=== PATIENT | female | born 1935 | race Caucasian/White ===

== ENCOUNTER 2017-07-23 15:51 | Inpatient (IN) | payer MEDICARE ==
[2017-07-23 16:32] LABS: #Basophils 0.1 thou/uL (0.0-0.2); #Eosinphils 0.1 thou/uL (0.0-0.7); #Monocytes 0.6 thou/uL (0.11-0.59); #Neutrophils 3.5 thou/uL (1.40-6.50); %Basophils 1.1 % (0.0-1.0); %Lymphocytes 40.8 % (21.0-51.0); %Monocytes 8.1 % (0.0-10.0); Hemoglobin 14.8 g/dL (12.0-16.0); Mean Corpuscular HGB CONC 33.2 g/dL (32.0-36.0); Mean Corpuscular Hemoglobin 32.2 pg (27.0-31.0); Mean Corpuscular Volume 97.1 fl (81.0-99.0); Mean Platelet Volume 7.7 fL (7.4-10.4); Platelet Count 240 thou/uL (130-400); RBC Distribution Width 12.4 % (11.5-14.5); Red Blood Cell (RBC) Count 4.59 mill/uL (4.20-5.40); White Blood Cell (WBC) Count 7.2 thou/uL (4.8-10.8)
[2017-07-23 16:39] LABS: PTT 31.1 SEC (22.9-36.1)
[2017-07-23 16:54] LABS: ALT (SGPT) 18 U/L (8-55); AST (SGOT) 31 U/L (5-34); Albumin 4.6 g/dL (3.4-4.8); Alkaline Phosphatase 65 U/L (40-150); Anion Gap 13 mmol/L (10-20); BUN (Urea Nitrogen) 16 mg/dL (9.8-20.1); Bilirubin, Total 0.4 mg/dL (0.2-1.2); Calc. Creatinine Clearance 0 mL/min (70-130); Calcium 10.2 mg/dL (7.8-10.44); Carbon Dioxide 27 mmol/L (23-31); Chloride 105 mmol/L (98-107); Estimated GFR-MDRD 62; Globulin 2.9 g/dL (2.4-3.5); Glucose 106 mg/dL (83-110); Potassium 3.8 mmol/L (3.5-5.1); Protein, Total 7.5 g/dL (6.0-8.3); Sodium 141 mmol/L (136-145)
--- NOTE | 2017-07-23 17:31 | CT ---
CT BRAIN: Date: 07/23/17 HISTORY: Fall, trauma to head. TECHNIQUE: Noncontrast enhanced CT images of the brain obtained. Brain and bone windows are obtained. FINDINGS: Noncontrast enhanced CT images of brain demonstrate diffuse cortical atrophy and deep white matter is chemic changes. No evidence of acute intracranial masses, hemorrhages, strokes, or contusions seen. T here does appear to be a small amount of fluid seen in the right mastoid air cells. IMPRESSION: Cortical atrophy and deep white matter ischemic changes. POS: [facility]
[2017-07-23] MEDS ORDERED: Fentanyl 100 MCG/2 ML VIAL ONE (17:38)
--- NOTE | 2017-07-23 17:44 | RAD ---
AP AND LATERAL VIEWS LEFT FEMUR: History: Fall. FINDINGS: Images demonstrate subtle left femoral neck fracture. I do recommend correlation with AP pelvis as we ll as dedicated CT of the pelvis to evaluate for possible left femoral neck fracture. Marked atherosclerotic calcification of the superficial femoral artery and left popliteal artery is s een. The rest of the left femur is unremarkable. IMPRESSION: Possible left femoral neck fracture. Correlate with CT pelvis. POS: [facility]
--- NOTE | 2017-07-23 17:48 | RAD ---
AP PELVIS: History: Fall. FINDINGS: There is definite left femoral neck fracture with impaction and some superior migration of the distal fracture fragment. No evidence of intertrochanteric fracture is seen. No other pelvic fracture is se en. IMPRESSION: Partially impacted moderately displaced left femoral neck fracture. POS: [facility]
--- NOTE | 2017-07-23 17:49 | RAD ---
AP CHEST: History: Fall. FINDINGS: AP portable chest demonstrates dextroscoliosis, ectasia and calcification of the aorta is seen. No ev idence of effusions, pneumonia, or pneumothorax is seen. IMPRESSION: Cardiomegaly and calcification of the aorta. POS: [facility]
[2017-07-23 18:13] LABS: Bilirubin Negative (Negative); Blood, Urine Negative (Negative); Clarity CLEAR (Clear); Glucose, Urine (Dipstick) Negative (Negative); Leukocyte Trace (Negative); Nitrite Negative (Negative); Protein, Urine (Dipstick) Negative (Neg-Trace); Specific Gravity, Urine 1.008 (1.002-1.036); Urobilinogen 0.2 mg/dL (0.2-1.0)
[2017-07-23 18:16] LABS: Bacteria/HPF None Seen HPF (None Seen); Hyaline Casts/LPF 0-3 HYALINE CAST LPF (0-3 Hyaline); RBC/HPF 0-3 HPF (0-3); Squamous Epithelial 0-3 HPF (0-3); WBC/HPF 0-3 HPF (0-3)
--- NOTE | 2017-07-23 19:08 | HP ---
DATE OF ADMISSION: 07/23/2017 REQUESTING PHYSICIAN: Antonio Rodas DO. ATTENDING SURGEON: Rohan Calderon MD. CONSULTATIONS: Orthopedics, Antonio Chamberlain MD. HISTORY OF PRESENT ILLNESS: The patient is an 82-year-old woman, [facility], when she stood up and lost her balance and fell on her le ft hip. The patient was unable to stand. EMS was called. [facility], and examination was noted to have a left femoral neck fracture, at which time we were asked to admit the patient and obtain orthopedic consultation. ALLERGIES: None. CURRENT MEDICATIONS: The patient states that she does not have her medication list with her, but she does take a blood pressure medicine that she knows of. Denies taking a blood thinner. PAST MEDICAL HISTORY: Hypertension. PAST SURGICAL HISTORY: Bowel surgery. SOCIAL HISTORY: The patient states that she drinks every day, less than 5 drinks per day. Denies dr ug or tobacco use. The patient lives at home independently. FAMILY MEDICAL HISTORY: Unknown. REVIEW OF SYSTEMS: A 10-point review of systems is negative unless otherwise stated. PHYSICAL EXAMINATION: VITAL SIGNS: Blood pressure 184/63, heart rate 64, respirations 18, oxygen saturation 96% on room ai r, and temperature is 97.6. GENERAL: The patient is resting comfortably in bed. She is awake, alert, and oriented. Her [place] coma scale is 15. HEENT: Head is normocephalic, atraumatic. Eyes: Extraocular motions intact. PERRLA bilaterally. Ears are atraumatic without discharge. Nose is atraumatic with discharge. Oropharynx is clear. NECK: Nontender. Trachea is midline. No JVD. CHEST: Clear to auscultation with good inspiratory and expiratory effort. HEART: Regular rate and rhythm. ABDOMEN: Soft, flat, nontender with active bowel sounds. Pelvis is stable with tenderness to palpat ion to the left hip consistent with her fracture. EXTREMITIES: Neurovascularly intact x4. BACK: By report is atraumatic and nontender. LABORATORY FINDINGS: White blood cell count 7.2, hemoglobin 14.8, hematocrit 44.6, platelets 240. S odium 141, potassium 3.8, chloride 105, CO2 of 27, BUN 16, creatinine 0.87, glucose 106. PTT 31, PT 13, INR 1.0. Urinalysis is unremarkable. RADIOGRAPHS: AP chest shows cardiomegaly with calcification of the aorta. AP pelvis shows a partial ly impacted moderately displaced left femoral neck fracture. AP lateral of the left femur shows a po ssible left femoral neck fracture. CT of the brain shows cortical atrophy and deep white matter isch emic changes. ASSESSMENT: 1. Status post ground level fall. 2. Left femoral neck fracture. 3. Panic secondary to acute trauma. PLAN: Will be to admit the patient to surgical floor, make n.p.o. after midnight. We will do IV hyd ration, pulmonary toilet, gastritis and mechanical DVT prophylaxis, postoperatively physical and occu pational therapy, and await placement decision.
[2017-07-23] MEDS ORDERED: CEFAZOLIN/Water 2 GM/20 ML SYRINGE SLOW IVP SCH (19:30)
[2017-07-23] MEDS ORDERED: Dextrose 50% Abboject 50 ML SYRINGE SLOW IVP PRN (19:57)
[2017-07-23] MEDS ORDERED: traMADol HCl 50 MG TAB PO PRN ×2 (19:57)
[2017-07-23] MEDS ORDERED: Ondansetron HCl/PF 4 MG/2 ML Vial IVP PRN (19:57)
[2017-07-23] MEDS ORDERED: Ondansetron ODT 4 MG TAB PO PRN (19:57)
[2017-07-23] MEDS ORDERED: Dextrose 5% in Water 1,000 ML IV PRN (19:57)
[2017-07-23 20:11] VITALS: BMI 18.3
[2017-07-23] MEDS ORDERED: Morphine 4 MG/ML VIAL SLOW IVP PRN (20:30)
[2017-07-23] MEDS: Sodium Chloride 0.9% 1,000 ML IV SCH (20:40)
[2017-07-23] MEDS: Ketorolac Tromethamine 30 MG/ML VIAL IVP SCH (20:41)
[2017-07-23] MEDS: Famotidine 20 MG TAB PO SCH (20:41)
[2017-07-23] MEDS: Senokot S 8.6-50 MG TAB PO SCH (20:41)
[2017-07-23] MEDS: hydrALAZINE 20 MG/ML VIAL SLOW IVP PRN (20:58)
[2017-07-24] MEDS: Ketorolac Tromethamine 30 MG/ML VIAL IVP SCH ×4 (02:39→21:19)
[2017-07-24] MEDS: Acetaminophen 1,000 MG in Premix Bag 1 BAG IVPB SCH ×4 (02:39→21:18)
[2017-07-24 05:03] LABS: #Lymphocytes 1.3 thou/uL (1.20-3.40); #Neutrophils 8.3 thou/uL (1.40-6.50); %Basophils 0.1 % (0.0-1.0); %Eosinophils 0.2 % (0.0-10.0); %Lymphocytes 12.2 % (21.0-51.0); %Neutrophils 78.6 % (42.0-75.0); Hemoglobin 12.9 g/dL (12.0-16.0); Mean Corpuscular HGB CONC 32.8 g/dL (32.0-36.0); Mean Corpuscular Hemoglobin 31.4 pg (27.0-31.0); Mean Corpuscular Volume 95.7 fl (81.0-99.0); Mean Platelet Volume 7.8 fL (7.4-10.4); Platelet Count 228 thou/uL (130-400); RBC Distribution Width 12.3 % (11.5-14.5); Red Blood Cell (RBC) Count 4.11 mill/uL (4.20-5.40); White Blood Cell (WBC) Count 10.6 thou/uL (4.8-10.8)
[2017-07-24 05:16] LABS: Anion Gap 10 mmol/L (10-20); BUN (Urea Nitrogen) 11 mg/dL (9.8-20.1); Calc. Creatinine Clearance 54 mL/min (70-130); Calcium 8.9 mg/dL (7.8-10.44); Carbon Dioxide 27 mmol/L (23-31); Chloride 106 mmol/L (98-107); Estimated GFR-MDRD 87; Glucose 139 mg/dL (83-110); Magnesium 1.9 mg/dL (1.6-2.6); Phosphorus 2.3 mg/dL (2.3-4.7); Sodium 140 mmol/L (136-145)
[2017-07-24 05:20] LABS: Potassium 2.9 mmol/L (3.5-5.1)
[2017-07-24] MEDS ORDERED: Potassium Phosphate 30 MMOL in Sodium Chloride 0.9% 500 ML IVPB ONE (06:00)
[2017-07-24] MEDS: hydrALAZINE 20 MG/ML VIAL SLOW IVP PRN (06:05)
[2017-07-24] MEDS: Sodium Chloride 0.9% 1,000 ML IV SCH ×2 (06:06→15:57)
[2017-07-24] MEDS ORDERED: Ondansetron HCl/PF 4 MG/2 ML Vial ONE ×2 (06:59→10:47)
[2017-07-24] MEDS ORDERED: Famotidine/PF 20 mg/2ml Vial ONE (06:59)
[2017-07-24] MEDS ORDERED: Fentanyl 100 MCG/2 ML VIAL ONE ×2 (06:59→07:30)
[2017-07-24] MEDS ORDERED: CEFAZOLIN/Water 2 GM/20 ML SYRINGE ONE (07:26)
[2017-07-24] MEDS: Amlodipine 5 MG TAB PO SCH (09:00)
[2017-07-24] MEDS ORDERED: Promethazine HCl 25 MG/ML VIAL IM PRN (09:05)
[2017-07-24] MEDS ORDERED: Morphine Sulfate 2 MG/ML SYRINGE SLOW IVP PRN (09:05)
[2017-07-24] MEDS ORDERED: Ondansetron HCl/PF 4 MG/2 ML Vial IVP PRN (09:05)
[2017-07-24] MEDS ORDERED: Promethazine HCl 25 MG/ML VIAL SLOW IVP PRN (09:05)
[2017-07-24] MEDS ORDERED: Morphine 4 MG/ML VIAL ONE (09:45)
--- NOTE | 2017-07-24 10:30 | RAD ---
LEFT HIP TWO VIEWS: History: Post op total left hip. Comparison: Prior day. FINDINGS: Satisfactory appearance left hip arthroplasty. Expected post-operative gas and edema. No hardware com plication. Dense vascular calcifications. IMPRESSION: Satisfactory appearance of left hip arthroplasty. POS: [facility]
[2017-07-24] MEDS ORDERED: ePHEDrine/0.9% NaCl/PF SYRINGE 50 mg/10 ml ONE (10:47)
[2017-07-24] MEDS ORDERED: Dexamethasone 20 MG/5 ML VIAL ONE (10:47)
[2017-07-24] MEDS ORDERED: PROPOFOL 200 MG/20 ML VIAL ONE (10:47)
[2017-07-24] MEDS ORDERED: Succinylcholine Chloride 20 MG/ML 10 ml SYRINGE FS ONE (10:47)
[2017-07-24] MEDS ORDERED: Lidocaine 1% PF 5 ML VIAL ONE (10:47)
[2017-07-24] MEDS: Senokot S 8.6-50 MG TAB PO SCH ×2 (10:47→21:20)
[2017-07-24] MEDS ORDERED: PHENYLEPHRINE-NS 100 MCG/ML 10 ML SYRINGE ONE (10:47)
[2017-07-24] MEDS: Polyethylene Glycol 3350 17 GM Packet PO SCH (10:47)
--- NOTE | 2017-07-24 16:51 | PRG ---
DATE OF SERVICE: 07/24/2017 SUBJECTIVE: The patient is currently on the surgical floor. She has just [facility] where she underwent open reduction internal fixation of her left hip fracture, which she sustained yesterday. She tolerated this procedure well. Currently, has no complaints though [place] flowers still is drowsy from her anesthesia. OBJECTIVE: VITAL SIGNS: Temperature is 99.6, heart rate 70, blood pressure 144/61, respirations 16, and oxygen saturation is 98% on room air. GENERAL: The patient is resting comfortably in bed. She is awake, conversant and alert, oriented x2 . To coma scale is 14. The patient has 1-point out for some confusion. HEENT: Unremarkable. LUNGS: Clear to auscultation with moderate inspiratory and expiratory effort. HEART: There is regular rate and rhythm. ABDOMEN: Soft, flat, nontender with hypoactive bowel sounds. EXTREMITIES: Neurovascularly intact x4. Postop dressing is clean, dry, and intact. LABORATORY DATA: White blood cell count 10.6, hemoglobin 12.9, hematocrit 39.3, platelets 228. [place] um 140, potassium 2.9, chloride 106, CO2 of 27, BUN 11, creatinine 0.65, glucose 139, magnesium 1.9, phosphorus 2.3. No radiographs to review this morning. ASSESSMENT: 1. Status post ground level fall. 2. Status post open reduction, internal fixation of left hip fracture. 3. Hypokalemia. PLAN: To continue supportive care, start physical and occupational therapy as soon as possible, regu lar diet. Discontinue her Bah catheter and saline lock her IV. The patient also had her potassium replaced this morning.
[2017-07-24] MEDS ORDERED: Ibuprofen 800 MG TAB PO SCH (17:45)
[2017-07-24] MEDS: Acetaminophen 500 MG TAB PO SCH ×2 (18:55→23:41)
[2017-07-24] MEDS: CEFAZOLIN/Water 2 GM/20 ML SYRINGE SLOW IVP SCH (19:05)
[2017-07-24] MEDS: Famotidine 20 MG TAB PO SCH (21:19)
[2017-07-25] MEDS: CEFAZOLIN/Water 2 GM/20 ML SYRINGE SLOW IVP SCH ×2 (00:19→09:34)
[2017-07-25] MEDS: Sodium Chloride 0.9% 1,000 ML IV SCH ×2 (00:19→11:54)
[2017-07-25] MEDS: Acetaminophen 500 MG TAB PO SCH ×3 (02:57→08:58)
[2017-07-25] MEDS: Ketorolac Tromethamine 30 MG/ML VIAL IVP SCH ×4 (02:58→21:43)
[2017-07-25 08:39] LABS: #Eosinphils 0.1 thou/uL (0.0-0.7); #Lymphocytes 1.4 thou/uL (1.20-3.40); #Monocytes 0.7 thou/uL (0.11-0.59); #Neutrophils 6.5 thou/uL (1.40-6.50); %Basophils 0.5 % (0.0-1.0); %Eosinophils 1.2 % (0.0-10.0); %Lymphocytes 16.3 % (21.0-51.0); %Monocytes 7.7 % (0.0-10.0); %Neutrophils 74.4 % (42.0-75.0); Hemoglobin 10.3 g/dL (12.0-16.0); Mean Corpuscular HGB CONC 32.9 g/dL (32.0-36.0); Mean Corpuscular Hemoglobin 32.1 pg (27.0-31.0); Mean Corpuscular Volume 97.7 fl (81.0-99.0); Platelet Count 173 thou/uL (130-400); RBC Distribution Width 12.5 % (11.5-14.5); Red Blood Cell (RBC) Count 3.22 mill/uL (4.20-5.40); White Blood Cell (WBC) Count 8.7 thou/uL (4.8-10.8)
[2017-07-25] MEDS: Amlodipine 5 MG TAB PO SCH (08:58)
[2017-07-25] MEDS: Atorvastatin Calcium 20 MG TAB PO SCH (08:59)
[2017-07-25] MEDS ORDERED: Atorvastatin Calcium 20 MG TAB PO SCH (09:00)
[2017-07-25] MEDS: Enoxaparin Sodium 40 MG/0.4 ML SYRINGE SC SCH (09:00)
[2017-07-25] MEDS: Polyethylene Glycol 3350 17 GM Packet PO SCH (09:01)
[2017-07-25] MEDS: Senokot S 8.6-50 MG TAB PO SCH ×2 (09:01→21:44)
[2017-07-25] MEDS: Acetaminophen 325 MG TAB PO SCH ×3 (13:24→21:44)
--- NOTE | 2017-07-25 19:46 | PRG ---
DATE OF SERVICE: 07/25/2017 SUBJECTIVE: The patient is postop day 1 from a left hip fracture which she sustained from a ground l evel fall. The patient is currently on the surgical floor. She had no issues overnight. This morni ng, she states that her pain is controlled. She is tolerating a diet and she has begun working with physical and occupational therapy. OBJECTIVE: VITAL SIGNS: Temperature is 99.4, heart rate 81, blood pressure 155/54, respirations 16, oxygen satu ration is 95% on 3 liters via nasal cannula. GENERAL: The patient is awake, alert, and oriented in bed. She is conversant and appropriate. HEENT: Unchanged. LUNGS: Clear to auscultation bilaterally with good inspiratory and expiratory effort. HEART: Regular rate and rhythm. ABDOMEN: Soft, flat, nontender with active bowel sounds. EXTREMITIES: Neurovascularly intact x4. Postop dressing is clean, dry, and intact. LABORATORY DATA: White blood cell count 8.1, hemoglobin 10.3, hematocrit 31.4, platelets 173. There are no radiographs to review this morning. ASSESSMENT AND PLAN: 1. Status post ground level fall. 2. Status post open reduction internal fixation of hip fracture. PLAN: Will be to continue supportive care, physical and occupational therapy, and await placement de cision. The patient is from the [facility] and the case workers are working on her placement down in that area.
[2017-07-25 20:12] LABS: Anion Gap 10 mmol/L (10-20); BUN (Urea Nitrogen) 14 mg/dL (9.8-20.1); Calc. Creatinine Clearance 45 mL/min (70-130); Calcium 8.7 mg/dL (7.8-10.44); Carbon Dioxide 26 mmol/L (23-31); Chloride 110 mmol/L (98-107); Estimated GFR-MDRD 69; Glucose 173 mg/dL (83-110); Magnesium 1.9 mg/dL (1.6-2.6); Potassium 3.8 mmol/L (3.5-5.1); Sodium 142 mmol/L (136-145)
[2017-07-25 20:29] LABS: Phosphorus 1.9 mg/dL (2.3-4.7)
[2017-07-25] MEDS ORDERED: Potassium Phosphate 30 MMOL in Sodium Chloride 0.9% 500 ML IVPB ONE (21:30)
[2017-07-25] MEDS: Famotidine 20 MG TAB PO SCH (21:44)
[2017-07-26] MEDS: Acetaminophen 325 MG TAB PO SCH ×4 (01:22→12:08)
[2017-07-26] MEDS: Ketorolac Tromethamine 30 MG/ML VIAL IVP SCH ×2 (03:44→09:35)
[2017-07-26] MEDS: hydrALAZINE 20 MG/ML VIAL SLOW IVP PRN (05:34)
[2017-07-26 06:04] LABS: #Basophils 0.1 thou/uL (0.0-0.2); #Eosinphils 0.3 thou/uL (0.0-0.7); #Lymphocytes 1.8 thou/uL (1.20-3.40); #Monocytes 0.7 thou/uL (0.11-0.59); #Neutrophils 5.3 thou/uL (1.40-6.50); %Basophils 0.7 % (0.0-1.0); %Eosinophils 3.8 % (0.0-10.0); %Lymphocytes 22.1 % (21.0-51.0); %Monocytes 8.1 % (0.0-10.0); %Neutrophils 65.4 % (42.0-75.0); Hemoglobin 11.2 g/dL (12.0-16.0); Mean Corpuscular HGB CONC 33.1 g/dL (32.0-36.0); Mean Corpuscular Hemoglobin 32.7 pg (27.0-31.0); Mean Corpuscular Volume 98.8 fl (81.0-99.0); Mean Platelet Volume 8.2 fL (7.4-10.4); Platelet Count 191 thou/uL (130-400); RBC Distribution Width 12.4 % (11.5-14.5); Red Blood Cell (RBC) Count 3.44 mill/uL (4.20-5.40); White Blood Cell (WBC) Count 8.2 thou/uL (4.8-10.8)
[2017-07-26 06:24] LABS: Anion Gap 12 mmol/L (10-20); BUN (Urea Nitrogen) 11 mg/dL (9.8-20.1); Calc. Creatinine Clearance 53 mL/min (70-130); Calcium 8.7 mg/dL (7.8-10.44); Carbon Dioxide 25 mmol/L (23-31); Chloride 111 mmol/L (98-107); Estimated GFR-MDRD 84; Glucose 105 mg/dL (83-110); Potassium 4.1 mmol/L (3.5-5.1); Sodium 144 mmol/L (136-145)
--- NOTE | 2017-07-26 06:56 | CON ---
DATE OF CONSULTATION: 07/23/2017 REQUESTING PHYSICIAN: Dr. Alvino Calderon HISTORY OF PRESENT ILLNESS: The patient is a pleasant 82-year-old lady who was dining earlier this e vening with friends at [facility]. She had 3 alcoholic beverages. She reports that she stood up, lost balance and fell on her left side. She reports immediate left groin pain. Upon arrival at [place], x-rays were obtained that showed a left subcapital femoral neck fracture and orthopedic consultation requested. PAST MEDICAL HISTORY: Remarkable for hypertension. PAST SURGICAL HISTORY: Colon resection. MEDICATIONS: The patient states that she takes a medication for hypertension, but does not know its name. ALLERGIES: None known. SOCIAL HISTORY: She does consume alcoholic beverages daily. She denies drug or tobacco use. She li ves in an independent living center in the [facility]. FAMILY HISTORY: Noncontributory. REVIEW OF SYSTEMS: Denies fevers, chills or sweats. Denies chest pain or shortness of breath. Jamarcus es numbness or tingling in the lower extremity. PHYSICAL EXAMINATION: VITAL SIGNS: Temperature 97.6, heart rate of 64, respiratory rate of 18, and blood pressure of 184/6 3. HEENT: Atraumatic, normocephalic. NECK: Nontender with supple range of motion. HEART: Shows a regular rate and rhythm with a 2/6 systolic ejection murmur. CHEST: Nontender to palpation. RESPIRATORY: Clear to auscultation bilaterally. ABDOMEN: Soft, flat with normal bowel sounds. Pelvis is stable to compression. EXTREMITIES: Bilateral upper extremities are atraumatic at shoulder, elbow, wrist and hand. She is found to have intact sensation over the radial, median and ulnar distributions bilaterally. The righ t lower extremity is atraumatic at the hip, knee, ankle and foot. She has intact sensation over both dorsal and plantar surfaces of the foot. Left lower extremity remarkable for pain in the groin with any type of motion of the leg. The knee, ankle and foot appear atraumatic. Distal sensation is sub jectively intact. X-RAYS: AP pelvis x-ray shows a left femoral neck fracture. AP lateral x-rays of left femur confirm ed the left femoral neck fracture. ASSESSMENT: The patient is status post ground level fall sustaining left femoral neck fracture. PLAN: At this time, the patient will be kept n.p.o. She will be placed on the surgical floor. We w ill plan on proceeding with a left hip hemiarthroplasty tomorrow. Today, I discussed with the patien t the risks and benefits of the procedure. The risks include, but are not limited to bleeding, infec tion, nerve injury, DVT, PE, loss of limb or life. She does appear to understand and wishes to proce ed. Consent will be obtained prior to surgery.
[2017-07-26] MEDS: Polyethylene Glycol 3350 17 GM Packet PO SCH (09:34)
[2017-07-26] MEDS: Enoxaparin Sodium 40 MG/0.4 ML SYRINGE SC SCH (09:35)
[2017-07-26] MEDS: Senokot S 8.6-50 MG TAB PO SCH (09:37)
[2017-07-26] MEDS: Amlodipine 5 MG TAB PO SCH (09:37)
[2017-07-26] MEDS: Atorvastatin Calcium 20 MG TAB PO SCH (09:37)
--- NOTE | 2017-07-26 11:54 | OP ---
DATE OF SURGERY: 07/24/2017. PREOPERATIVE DIAGNOSIS: Left hip subcapital femoral neck fracture. POSTOPERATIVE DIAGNOSIS: Left hip subcapital femoral neck fracture. SURGICAL PROCEDURE: Left hip hemiarthroplasty. ANESTHESIA: General. SURGEON: Antonio Chamberlain M.D. [employer] SUPERVISOR: Jessica Yuen PA-C. ESTIMATED BLOOD LOSS: 150 mL IMPLANTS: The DePuy [place] stem size 6 with a +5 head and a 28 x 49 bipolar cup. COMPLICATIONS: None. DRAINS: None. SPECIMEN: None. OUTCOME: Satisfactory. INDICATIONS: The patient is an 82-year-old lady who sustained a ground level fall at a local restaur ant sustaining a left subcapital femoral neck fracture. The patient and I have discussed treatment o ptions including screw stabilization, hemiarthroplasty versus total hip replacement. Given the patie nt's level of activity and the displacement present, we have now decided to proceed with hemiarthropl asty. We have also discussed risks and benefits of surgery. Risks include but are not limited to bl eeding, infection, nerve injury, DVT, PE, dislocation, loss of limb or life. Patient appears to unde rstand and does wish to proceed. Consent has been obtained. DESCRIPTION OF PROCEDURE: The patient was brought to the operating room and a timeout performed foll owed by induction of general anesthesia. The patient was then positioned on the operating room table in a right lateral decubitus position and then a sterile prep and drape was performed in the left lo wer extremity. Next, a curvilinear incision was made centered over the greater trochanter. After sk in was sharply incised, dissection was carried down bluntly to the underlying tensor fascia and fasci a preeti. This structure was incised in line with the skin incision and then a Charnley retractor plac ed in the wound. The trochanteric bursa was swept off the short external rotators and then the pirif ormis was released and tagged as was the superior and inferior gemelli as well as the obturator inter nus. Once reflected posteriorly, the capsule was clearly visualized, a T capsulotomy was then perfor med. Next, the femoral head was removed through the fracture using a T handle corkscrew awl. Once r emoved, this was sized on the back table and felt that a 49 cup would be of appropriate size. Next, an oscillating saw was used to make a femoral neck cut and then the femoral canal prepared. A box ch clovis was used to open the initial proximal femur followed by a T handle awl and then a lateralizing r eamer. Progressive T handle awls were then carried up to a size 6. Broaching was started at size 3 and then carried up to a size 6 with good fit and fill. A trial reduction was performed and the +5 h ead was found to have good gnosticism of leg length and good stability of the hip. As such, the tri al components were all removed from the femur and then 3 liters of normal saline using Pulsavac was i rrigated through the wound and the floor of the acetabulum was once again checked to ensure no bony f ragments were present. Next, the DePuy [place] size 6 stem was inserted in the proximal femur followe d by placement of the bipolar head on the stem. The hip was then reduced and found to have excellent stability. Next, the T capsulotomy was repaired with #2 Vicryl suture. This was followed by repair of the short external rotators to the posterior aspect of the trochanter using #2 Vicryl as well. 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 A Xeroform gauze and tape dressing was applied to the hip and then patient was transferred to recovery room in stable condition. There were no com plications and she tolerated the procedure well.
[2017-07-26 15:59] VITALS: BP 137/77; TEMP 98.9
== END 2017-07-26 16:06 | DRG 470 ==
LOC: ERS 15:51 → SURG A 17:54
PROVIDERS: ADMIT Surgery; ATTEND Surgery
PROC: 0SRS0JZ Replacement of Left Hip Joint, Femoral Surface with Synthetic Substitute, Open Approach (ICD-10-PCS; principal; 2017-07-24)
DX: S72.012A Unspecified intracapsular fracture of left femur, initial encounter for closed fracture (principal); W19.XXXA Unspecified fall, initial encounter; Y92.511 Restaurant or cafe as the place of occurrence of the external cause; E87.6 Hypokalemia; Z90.49 Acquired absence of other specified parts of digestive tract; I10 Essential (primary) hypertension
CPT/HCPCS: 36415; 70450; 71045; 72170; 80048; 80053; 81003; 81015; 83735; 84100; 85025; 85610; 85730; 86850; 86900; 86901; 93005; 96374; G0390; G8978-GP-CL; G8979-GP-CK; G8987-GO-CL; G8988-GO-CI; J0131; J0360; J1100; J1650; J1885; J2001; J2270; J2405; J2704; J3010; J7050; Q0162; S0028